=== PATIENT | female | born 1970 | race Caucasian/White ===

== ENCOUNTER 2020-10-17 18:21 | Emergency (ER) | payer OTHER ==
[~2020-10-17] VITALS: Ht 162.6 cm; Wt 81.6 kg
[2020-10-17] MEDS ORDERED: OXYC-128 PO (19:25)
[2020-10-17] MEDS ORDERED: OXYCODONE/APAP 5-325 MG TABLET PO ONE (19:30)
[2020-10-17] MEDS ORDERED: OXYCODONE/APAP 5-325 MG TABLET ONE (19:36)
[2020-10-17 19:46] VITALS: BP 122/95
--- NOTE | 2020-10-17 19:48 | NUR ---
Patient discharged to home in stable condition. Written and verbal after care instructions given. Patient verbalizes understanding of instructions. Stressed follow up or return to ER for worsening s/s. Belongings with patient. VSS. Steady gait. Instructed to not drive and family said that they would drive patient home.
== END 2020-10-17 19:48 | disposition home or self-care (01) ==
LOC: ER 18:21
DX: M54.42 Lumbago with sciatica, left side (principal); E78.5 Hyperlipidemia, unspecified
CPT/HCPCS: A4663

== ENCOUNTER 2021-02-18 16:20 | Emergency (ER) | payer OTHER ==
[~2021-02-18] VITALS: Ht 162.6 cm; Wt 89.8 kg
[~2021-02-18 16:20] MED LIST: OXYC-128 PO
--- NOTE | 2021-02-18 16:30 | NUR ---
MD at bedside for assessment, patient states she belives she has an infection in her neck
--- NOTE | 2021-02-18 17:00 | NUR ---
Patient discharged to home in stable condition. Patient noted ambulating home, no signs of acute distress. Written and verbal after care instructions given. Patient verbalizes understanding of instructions. Stressed follow up or return to ER for worsening s/s.
[2021-02-18 17:08] VITALS: BP 118/85
== END 2021-02-18 17:00 | disposition home or self-care (01) ==
LOC: ER 16:21
DX: R22.1 Localized swelling, mass and lump, neck (principal); E78.5 Hyperlipidemia, unspecified
CPT/HCPCS: A4663